=== PATIENT | male | born 1940 | race Caucasian/White ===

== ENCOUNTER 2020-08-23 09:08 | Outpatient (REF) | payer MEDICARE, SELFPAY ==
[2020-08-23 10:40] LABS: INTERNATIONAL NORM RATIO 1.7 (0.9-1.1)
== END 2020-08-23 09:09 | disposition home or self-care (01) ==
LOC: HO.LABR 09:08
PROVIDERS: PCP Internal Medicine; Visit Provider Internal Medicine
DX: I48.91 Unspecified atrial fibrillation (principal)
CPT/HCPCS: 36415; 85610

== ENCOUNTER → 2020-09-20 10:15 | Outpatient (REF) | payer MEDICARE, SELFPAY ==
--- NOTE | 2020-09-20 10:30 | CA_ITS ---
Transthoracic Echocardiogram Patient (Last, First, Middle): Javi Arana, Gender: Male Date of : 1940 Age: 80 Procedure Date: 09/20/2020 Procedure Type: Transthoracic Echocardiogram Location: OP Height: 157.48 cm Weight: 65.77 kg BSA: 1.67 m2 Heart Rate: bpm BP: 136 / 72 mmHg Wood Processing Worker: Referring MD: Josafat Albarran MD Symptoms: I35.0 NON RHEUMATIC AORTIC STENOSIS Study Quality: Good ECG Rhythm: Atrial Fibrillation Conclusions: - The left ventricular systolic function is moderate to severely decreased. The visually estimated ejection fraction is between 30-35%. - There is mildly decreased right ventricular systolic function. - Severe biatrial enlargement. - There is severe aortic valve stenosis. - Global endocardial peak longitudinal strain -7.4% (markedly diminished). - Moderate pulmonary hypertension is present. Findings Left Ventricle Normal left ventricular cavity size. There is moderately increased left ventricular wall thickness. The left ventricular systolic function is moderate to severely decreased. The visually estimated ejection fraction is between 30-35%. The calculated ejection fraction is 34% by biplane method. Diastolic function is indeterminate on the basis of available data. Left ventricle is globally hypokinetic. Right Ventricle Normal right ventricular cavity size. There is mildly decreased right ventricular systolic function. Atria Severe biatrial enlargement. Aortic Valve There is severe calcification of the aortic valve. There is severe aortic valve stenosis. The peak aortic velocity is 3.66 m/s with a calculated peak gradient of 62 mmHg. The mean gradient is 35 mmHg. The aortic valve area is 0.80 cm2. There is mild aortic valve regurgitation. Dimensionless index 0.21. Stroke volume index 44. Due to atrial fibrillation, gradients as well as the above are variable. Mitral Valve There is moderate mitral annular calcification. There is mild mitral valve regurgitation. No significant mitral stenosis. Pulmonic Valve The pulmonic valve was not well visualized. There is trace to mild pulmonic valve regurgitation. Tricuspid Valve Normal tricuspid valve structure. There is mild tricuspid valve regurgitation. The right ventricular systolic pressure is 55 mmHg. Moderate pulmonary hypertension is present. Great Vessels The asc aorta is normal in size. Venous The inferior vena cava is mildly dilated and collapses less than 50% with inspiration. Pericardium/Pleural There is no evidence of pericardial effusion. Prior Study Comparison Changes noted compared to prior study dated: 06/13/2020. LVEF is diminished. Measurements 2D Linear Measurements RVIDd: 3.54 RVIDd Index: 2.12 IVSd: 1.41 0.6-0.9/0.6-1.0 cm LVIDd: 5.63 3.9-5.3/4.2-5.9 cm LVIDd Index: 3.37 2.4-3.2/2.2-3.1 cm/m2 LVIDs: 4.86 2.0-3.6 cm LVPWd: 1.22 0.7-1.1 cm Ao Root: 3.30 2.1-3.5 cm LA Diam: 4.60 2.7-3.8/3.0-4.0 cm LAIDs Index: 2.75 1.5-2.3 cm/m2 LV Mass: 400.51 67-162/88-224 g LV Mass Index: 239.83 43-95/49-115 g/m2 LVOT Diam: 2.30 3.0+(-)1.3 cm 2D Systolic Function EF 4C: 38.30 >55% EF 2C: 35.80 >55% EF BiP: 33.60 >55% Mitral Valve MR Vol - PW Dopp: 12.51 MR VTI: 1.39 MR ERO: 9.00 MR Alias Zion: 0.37 MR RAD: 0.40 Aortic Valve AoV Pk Zion: 3.66 AoV Mn Zion: 2.52 AoV VTI: 0.75 AoV Pk Grad: 62.00 Aov Mn Grad: 35.00 CANDIDA Cont.VTI: 0.80 AI Pk Zion: 3.89 AI [place]: 1.94 LVOT LVOT Pk Zion: 0.92 LVOT Mn [place]: 0.62 LVOT VTI: 0.19 LVOT Pk Grad: 3.00 LVOT Mn Grad: 2.00 LVOT Diam: 2.30 LVOT Area: 4.15 Tricuspid Valve TR Pk Zion: 3.42 TR Pk Grad: 47.00 RA Press: 8.00 RVSP: 55.00 Great Vessels Aorta Ao Root-2D: 3.30 2.0-3.7 cm Ao Asc: 3.60 2.1-3.4 cm Ao Arch: 2.90 Updated in Other Vendor System with Status of Final Josafat Albarran MD electronically signed on 09/21/2020 11:50:03 AM with status of Final
[2020-09-20 13:42] LABS: INTERNATIONAL NORM RATIO 3.7 (0.9-1.1); Prothrombin Time 44.8 SEC (10.8-13.0)
== END ==
LOC: HO.CARD 10:15
PROVIDERS: Absent Provider Internal Medicine; PCP Internal Medicine; Visit Provider Internal Medicine
DX: I48.91 Unspecified atrial fibrillation (principal); I35.0 Nonrheumatic aortic (valve) stenosis
CPT/HCPCS: 36415; 85610; 93306; 93356

== ENCOUNTER 2020-09-22 10:48 | Outpatient (REF) | payer BC, SELFPAY ==
[2020-09-22 12:58] LABS: INTERNATIONAL NORM RATIO 2.7 (0.9-1.1); Prothrombin Time 32.8 SEC (10.8-13.0)
== END 2020-09-22 10:49 | disposition home or self-care (01) ==
LOC: HO.LABR 10:48
PROVIDERS: PCP Internal Medicine; Visit Provider Internal Medicine
DX: I48.91 Unspecified atrial fibrillation (principal)
CPT/HCPCS: 36415; 85610

== ENCOUNTER 2020-09-26 10:12 | Outpatient (REF) | payer BC, SELFPAY ==
[2020-09-26 11:04] LABS: INTERNATIONAL NORM RATIO 2.3 (0.9-1.1); Prothrombin Time 27.3 SEC (10.8-13.0)
== END 2020-09-26 10:13 | disposition home or self-care (01) ==
LOC: HO.LABR 10:12
PROVIDERS: PCP Internal Medicine; Visit Provider Internal Medicine
DX: I48.91 Unspecified atrial fibrillation (principal)
CPT/HCPCS: 36415; 85610

== ENCOUNTER 2020-09-30 11:28 | Outpatient (REF) | payer BC, SELFPAY ==
[2020-09-30 12:32] LABS: MANUAL DIFF FLAG NO
[2020-09-30 12:43] LABS: Basophils Absolute Auto 0.1 X10*3/uL (0.0-0.2); Basophils Percent Auto 0.7 % (0-2); Eosinophils Absolute Auto 0.4 X10*3/uL (0.0-0.4); Eosinophils Percent Auto 4.4 % (0-4); Hematocrit 36.9 % (42-52); Hemoglobin 11.7 g/dl (14.0-18.0); Imm Gran Abs Auto 0.03 X10*3/uL (0.00-0.03); Imm Gran Pct Auto 0.3 % (0.0-0.4); Lymphocytes Absolute Auto 1.3 X10*3/uL (1.2-4.9); Mean Corpuscular HGB Conc 31.7 g/dl (31.0-36.0); Mean Corpuscular Hemoglobin 31.2 pg (27.0-33.0); Mean Corpuscular Volume 98.4 fL (80-98); Mean Platelet Volume 9.7 fL (9.4-12.4); Monocytes Absolute Auto 0.6 X10*3/uL (0.1-1.2); Neutrophils Absolute Auto 6.4 X10*3/uL (2.0-8.3); Neutrophils Percent Auto 72.6 % (45-73); Platelet Count 381 X10*3/uL (160-400); Red Blood Count 3.75 X10*6/uL (4.60-5.80); Red Cell Distribution Width 14.3 % (11.0-16.0); White Blood Count 8.9 X10*3/uL (4.8-10.8)
[2020-09-30 12:58] LABS: INTERNATIONAL NORM RATIO 1.7 (0.9-1.1); Prothrombin Time 20.5 SEC (10.8-13.0)
[2020-09-30 13:42] LABS: Anion Gap 14 (12-20); Blood Urea Nitrogen 86 mg/dL (9-16); Calcium 8.9 mg/dL (8.4-10.2); Carbon Dioxide 22 mmol/L (22-29); Chloride 115 mmol/L (96-108); Estimated Glomerular Filt Rate 19; Glucose Random 115 mg/dL (60-115); Potassium 5.1 mmol/l (3.3-5.1); Sodium 146 mmol/L (135-145)
== END 2020-09-30 11:29 | disposition home or self-care (01) ==
LOC: HO.LAB 11:28
PROVIDERS: PCP Internal Medicine; Visit Provider Internal Medicine
DX: I35.0 Nonrheumatic aortic (valve) stenosis (principal)
CPT/HCPCS: 36415; 80048; 85025; 85610

== ENCOUNTER → 2020-10-27 09:16 | Outpatient (BNVA) | payer BC, MEDICARE, SELFPAY | PROVIDERS: PCP Internal Medicine; Visit Provider Nurse Practitioner Family | DX: I35.0 Nonrheumatic aortic (valve) stenosis (principal); I25.10 Atherosclerotic heart disease of native coronary artery without angina pectoris; I44.7 Left bundle-branch block, unspecified; I48.19 Other persistent atrial fibrillation; I50.42 Chronic combined systolic (congestive) and diastolic (congestive) heart failure; N18.9 Chronic kidney disease, unspecified; Z95.2 Presence of prosthetic heart valve; Z98.890 Other specified postprocedural states | CPT/HCPCS: 93005 ==

== ENCOUNTER → 2021-01-19 13:02 | Outpatient (BNVA) | payer BC, SELFPAY | PROVIDERS: PCP Internal Medicine; Visit Provider Nurse Practitioner Family | DX: I25.10 Atherosclerotic heart disease of native coronary artery without angina pectoris (principal); I35.0 Nonrheumatic aortic (valve) stenosis; I44.7 Left bundle-branch block, unspecified; I48.19 Other persistent atrial fibrillation; I50.42 Chronic combined systolic (congestive) and diastolic (congestive) heart failure; N18.9 Chronic kidney disease, unspecified; R53.1 Weakness; Z98.890 Other specified postprocedural states; Z95.2 Presence of prosthetic heart valve | CPT/HCPCS: 93005; 99212 ==

== ENCOUNTER → 2021-02-01 11:18 | Outpatient (BNVA) | payer MEDICARE, SELFPAY | PROVIDERS: PCP Internal Medicine; Visit Provider Nurse Practitioner Family | DX: I25.10 Atherosclerotic heart disease of native coronary artery without angina pectoris (principal); I44.7 Left bundle-branch block, unspecified; I48.19 Other persistent atrial fibrillation; N18.9 Chronic kidney disease, unspecified; I50.42 Chronic combined systolic (congestive) and diastolic (congestive) heart failure; I35.0 Nonrheumatic aortic (valve) stenosis; Z95.2 Presence of prosthetic heart valve; Z98.890 Other specified postprocedural states; Z79.82 Long term (current) use of aspirin; Z79.01 Long term (current) use of anticoagulants; Z87.891 Personal history of nicotine dependence | CPT/HCPCS: 99212 ==